=== PATIENT | male | born 1945 | race Caucasian/White ===

== ENCOUNTER 2016-12-12 05:45 | Day surgery (SDC) | payer MEDICARE, OTHER ==
--- NOTE | ~2016-12-12 | EGD ---
EGD REPORT [facility] [address] [address] NAME: MATHEW STERN : [birth year] STATUS : REG [facility]#: [id number] AGE: 71 ADM/REG DATE : 12/12/16 MR#: [id number] REPORT SERV DATE: 12/12/16 DICTATED BY: CHACORTA GARNICA DATE: 12/12/16 REPORT STATUS : Draft TRANSCRIBED BY: [facility] DATE: 12/12/16 Endoscopy Center Patient Name: Mathew Stern Date of : 1945 Attending MD: CHACORTA GARNICA MD Procedure Date No Time: 12/12/2016 Procedure: Upper GI endoscopy Indications: Periumbilical abdominal pain Referring MD: DERICK MARINELLI Medicines: Propofol per Anesthesia Complications: No immediate complications. Procedure: Pre-Anesthesia Assessment: - ASA Grade Assessment: III - A patient with severe systemic disease. After obtaining informed consent, the endoscope was passed under direct vision. Throughout the procedure, the patient's blood pressure, pulse, and oxygen saturations were monitored continuously. The GIF [id number] was introduced through the mouth, and advanced to the second part of duodenum. The upper GI endoscopy was accomplished without difficulty. The patient tolerated the procedure well. Findings: The examined esophagus was normal. Diffuse mild inflammation characterized by erosions and erythema was found in the stomach. The examined duodenum was normal. Impression: - Normal esophagus. - Chronic gastritis. - Normal examined duodenum. Recommendation: - Discharge patient to home. - Return to nurse practitioner in 3 weeks. Procedure Code(s): --- Professional --- 30151, Esophagogastroduodenoscopy, flexible, transoral; diagnostic, including collection of specimen(s) by brushing or washing, when performed (separate procedure) Diagnosis Code(s): --- Professional --- K29.50, Unspecified chronic gastritis without bleeding R10.33, Periumbilical pain EGD REPORT [facility] [address] [address] NAME: MATHEW STERN : [birth year] STATUS : [place] [facility] [place]#: [id number] AGE: 71 ADM/REG DATE : 12/12/16 MR#: [id number] REPORT SERV DATE: 12/12/16 DICTATED BY: CHACORTA GARNICA. DATE: 12/12/16 REPORT STATUS : Draft TRANSCRIBED BY: [employer] DATE: 12/12/16 CPT copyright 2013 [employer]. All rights reserved. The codes documented in this report are preliminary and upon dean of education review may be revised to meet current compliance requirements. Chacorta Garnica MD CHACORTA GARNICA MD 12/12/2016 7:14 AM This report has been signed electronically. Number of Addenda: 0 Note Initiated On: 12/12/2016 7:06 AM Scope Withdrawal Time 0 hours 0 minutes 0 seconds [address] [facility] [place] [address]
--- NOTE | ~2016-12-12 | EGD ---
EGD REPORT [facility] [address] [address] NAME: MATHEW STERN : [birth year] STATUS : REG [facility]#: [id number] AGE: 71 ADM/REG DATE : 12/12/16 MR#: [id number] REPORT SERV DATE: 12/12/16 DICTATED BY: CHACORTA GARNICA DATE: 12/12/16 REPORT STATUS : Draft TRANSCRIBED BY: [facility] DATE: 12/12/16 Endoscopy Center Patient Name: Mathew Stern Date of : 1945 Attending MD: CHACORTA GARNICA MD Procedure Date No Time: 12/12/2016 Procedure: Colonoscopy Indications: Generalized abdominal pain, Constipation Referring MD: DERICK MARINELLI Medicines: Propofol per Anesthesia Complications: No immediate complications. Procedure: Pre-Anesthesia Assessment: - ASA Grade Assessment: III - A patient with severe systemic disease. After I obtained informed consent, the scope was passed under direct vision. Throughout the procedure, the patient's blood pressure, pulse, and oxygen saturations were monitored continuously. The CF [id number] was introduced through the anus and advanced to the cecum, identified by appendiceal orifice and ileocecal valve. The colonoscopy was performed without difficulty. The patient tolerated the procedure well. Findings: The perianal and digital rectal examinations were normal. A few medium-mouthed diverticula were found in the recto-sigmoid colon, in the sigmoid colon and in the descending colon. Internal hemorrhoids were found during retroflexion and were Grade I (internal hemorrhoids that do not prolapse). The rest of the colon was normal. Impression: - Diverticulosis in the recto-sigmoid colon, in the sigmoid colon and in the descending colon. - Internal hemorrhoids. Recommendation: - Patient has a contact number available for emergencies. The signs and symptoms of potential delayed complications were discussed with the patient. Return to normal activities tomorrow. Written discharge instructions were provided to the patient. - Regular diet. - Patient has a contact number available for emergencies. The signs and symptoms of potential delayed complications were discussed with the patient. Return to normal activities tomorrow. Written discharge EGD REPORT [address] [address] NAME: MATHEW STERN : [birth year] STATUS : REG [facility] [place] [place] PAT#: [id number] AGE: 71 ADM/REG DATE : 12/12/16 MR#: [id number] REPORT SERV DATE: 12/12/16 DICTATED BY: CHACORTA GARNICA. DATE: 12/12/16 REPORT STATUS : Draft TRANSCRIBED BY: [employer] DATE: 12/12/16 instructions were provided to the patient. - Continue present medications. Procedure Code(s): --- Professional --- 43198, Colonoscopy, flexible, proximal to splenic flexure; diagnostic, with or without collection of specimen(s) by brushing or washing, with or without colon decompression (separate procedure) Diagnosis Code(s): --- Professional --- K64.0, First degree hemorrhoids K57.30, Diverticulosis of large intestine without perforation or abscess without bleeding R10.84, Generalized abdominal pain K59.00, Constipation, unspecified CPT copyright 2013 [employer]. All rights reserved. The codes documented in this report are preliminary and upon levelman review may be revised to meet current compliance requirements. Chacorta Garnica MD CHACORAT GARNICA MD 12/12/2016 7:25 AM This report has been signed electronically. Number of Addenda: 0 Note Initiated On: 12/12/2016 7:05 AM Scope Withdrawal Time 0 hours 5 minutes 5 seconds [id number] [id number]
[~2016-12-12 05:45] MED LIST: ASAEC PO; CYMBALTA20 PO; LORTAB 5 PO; NAP500 PO; NEUR300 PO; NORCO1 TA1 PO; SIN10 PO
== END 2016-12-12 23:59 | disposition home health service (06) ==
LOC: DMU 05:45
PROVIDERS: Internal Medicine Gastroenterology
PROC: 0DJ08ZZ Inspection of Upper Intestinal Tract, Via Natural or Artificial Opening Endoscopic (ICD-10-PCS; principal; 2016-12-12 09:30)
PROC: 0DJD8ZZ Inspection of Lower Intestinal Tract, Via Natural or Artificial Opening Endoscopic (ICD-10-PCS; 2016-12-12 09:30)
DX: K29.50 Unspecified chronic gastritis without bleeding (principal); K64.0 First degree hemorrhoids; K57.30 Diverticulosis of large intestine without perforation or abscess without bleeding; K44.9 Diaphragmatic hernia without obstruction or gangrene; I10 Essential (primary) hypertension; I25.10 Atherosclerotic heart disease of native coronary artery without angina pectoris; Z86.010 Personal history of colon polyps; Z87.891 Personal history of nicotine dependence; Z79.899 Other long term (current) drug therapy; Z90.49 Acquired absence of other specified parts of digestive tract; G47.33 Obstructive sleep apnea (adult) (pediatric); Z86.73 Personal history of transient ischemic attack (TIA), and cerebral infarction without residual deficits

== ENCOUNTER 2017-03-01 06:22 | Day surgery (SDC) | payer MEDICARE, OTHER ==
--- NOTE | ~2017-03-01 | EGD ---
EGD REPORT [facility] [address] [address] NAME: MATHEW STERN : [birth year] STATUS : REG [facility]#: [id number] AGE: 72 ADM/REG DATE : 03/01/17 MR#: [id number] REPORT SERV DATE: 03/01/17 DICTATED BY: JOSE LUIS RIVER DATE: 03/01/17 REPORT STATUS : Draft TRANSCRIBED BY: [facility] DATE: 03/01/17 Endoscopy Center Patient Name: Mathew Stern Date of : 1945 Attending MD: JOSE LUIS RIVER, Procedure Date No Time: 03/01/2017 Procedure: Upper Device-Assisted Enteroscopy without Fluoroscopy Indications: Abnormal UGI series (with SBFT) Referring MD: DERICK MARINELLI, ABY MESSER MD Medicines: Monitored Anesthesia Care Complications: No immediate complications. Estimated blood loss: None. Procedure: Pre-Anesthesia Assessment: - ASA Grade Assessment: II - A patient with mild systemic disease. After obtaining informed consent, the endoscope was passed under direct vision using the balloon-assisted technique. Throughout the procedure, the patient's blood pressure, pulse, and oxygen saturations were monitored continuously. The SIF [id number] was introduced through the mouth and advanced to the mid-jejunum. After obtaining informed consent, the endoscope was passed under direct vision using the balloon-assisted technique. Throughout the procedure, the patient's blood pressure, pulse, and oxygen saturations were monitored continuously. Findings: The examined esophagus was normal. Evidence of a Jerel fundoplication was found in the gastric fundus. The anastomosis was characterized by healthy appearing mucosa. The exam of the stomach was otherwise normal. The cardia and gastric fundus were otherwise normal on retroflexion. The examined duodenum was normal. There was no evidence of significant pathology in the entire examined portion of jejunum. Impression: - Normal esophagus. - A Jerel fundoplication was found, anastomosis characterized by healthy appearing mucosa. - Normal examined duodenum. - The examined portion of the jejunum was normal. Recommendation: - Return to previous diet. - Continue present medications. - Return to referring physician. EGD REPORT [facility] [address] [address] NAME: MATHEW STERN : [birth year] STATUS : REG [facility] [place] PAT#: [id number] AGE: 72 ADM/REG DATE : 03/01/17 MR#: [id number] REPORT SERV DATE: 03/01/17 DICTATED BY: JOSE LUIS RIVER DATE: 03/01/17 REPORT STATUS : Draft TRANSCRIBED BY: [employer] DATE: 03/01/17 Procedure Code(s): --- Professional --- 03511, Small intestinal endoscopy, enteroscopy beyond second portion of duodenum, not including ileum; diagnostic, with or without collection of specimen(s) by brushing or washing (separate procedure) Diagnosis Code(s): --- Professional --- Z98.89, Other specified postprocedural states R93.3, Abnormal findings on diagnostic imaging of other parts of digestive tract CPT copyright 2013 [employer]. All rights reserved. The codes documented in this report are preliminary and upon medical records coder review may be revised to meet current compliance requirements. JOSE LUIS RIVER, 03/01/2017 7:58 AM Number of Addenda: 0 Note Initiated On: 03/01/2017 7:27 AM Scope Withdrawal Time 0 hours 0 minutes 0 seconds [id number] [id number]
== END 2017-03-01 23:59 | disposition home or self-care (01) ==
LOC: DMU 06:22
PROVIDERS: Internal Medicine Gastroenterology
PROC: 0DJ08ZZ Inspection of Upper Intestinal Tract, Via Natural or Artificial Opening Endoscopic (ICD-10-PCS; principal; 2017-03-01 07:30)
DX: K63.89 Other specified diseases of intestine (principal); R93.3 Abnormal findings on diagnostic imaging of other parts of digestive tract; K44.9 Diaphragmatic hernia without obstruction or gangrene; K29.70 Gastritis, unspecified, without bleeding; R01.1 Cardiac murmur, unspecified; Z86.73 Personal history of transient ischemic attack (TIA), and cerebral infarction without residual deficits; Z90.49 Acquired absence of other specified parts of digestive tract; Z98.890 Other specified postprocedural states